=== PATIENT | male | born 1945 | race Hispanic/Latino ===

== ENCOUNTER 2018-01-01 14:12 | Emergency (ER) | payer MEDICARE ==
[~2018-01-01] VITALS: Ht 172.7 cm; Wt 88.5 kg
[~2018-01-01 14:12] MED LIST: ASPIRIN325 MG PO; LISINOPRIL20 MG PO; LOVASTATIN40 MG PO; METFORMIN HCL1000 MG PO
--- OUTSIDE RECORDS SUMMARY | 2018-01-01 14:13 | XMS REPORT ---
Author Author [facility] Address Unknown Phone Unavailable Care Team Providers Care Auto Design Checker Name Role Phone WOO SALAZAR Unavailable Unavailable Problems This patient has no known problems. Allergies, Adverse Reactions, Alerts This patient has no known allergies or adverse reactions. Medications This patient has no known medications. Results Test Description Test Time Test Comments Text Results Atomic Results Result Comments HIP LEFT 2-3 VW (+/- PELVIS) [place] [address] Patient Name: ELSA KIDD MR #: [id number] : 1945 Age/Sex: 71/M Req #: [id number] [facility] Physician: Ordered by: WOO SALAZAR MD Report #: [id number] Location: ER Room/Bed: Procedure: [id number] DX/HIP LEFT 2-3 VW (+/- PELVIS) Exam Date: Exam Time: REPORT STATUS: Signed SHOULDER LEFT COMPLETE , HIP LEFT 2-3 VW (+/- PELVIS) Comparison: None Clinical history: Left shoulder and left thigh pain. Findings: Left shoulder: No acute fracture or dislocation. Minimal acromioclavicular/glenohumeral degenerative changes. Left hip: Mild/moderate bilateral hip and partially imaged lumbosacral degenerative changes. No acute fracture or dislocation. Left inguinal clips. Vascular calcifications. Impression: No acute bony abnormality Signed by: Dr Kristi Madden MD on 09/23/2017 5:43 AM Dictated By: KRISTI MADDEN MD 2 Transcribed By: KERI on 09/23/17542 COPY TO: WOO SALAZAR MD SHOULDER LEFT COMPLETE [place] [address] Patient Name: ELSA KIDD MR #: [id number] : 1945 Age/Sex: 71/M Req #: [id number] Adm Physician: Ordered by: WOO SALAZAR MD Report #: [id number] Location: ER Room/Bed: Procedure: [id number] DX/SHOULDER LEFT COMPLETE Exam Date: 09/23/17 Exam Time: 042 REPORT STATUS: Signed SHOULDER LEFT COMPLETE, HIP LEFT 2-3 VW (+/- PELVIS) Comparison: None Clinical history: Left shoulder and left thigh pain. Findings: Left shoulder: No acute fracture or dislocation. Minimal acromioclavicular/glenohumeral degenerative changes. Left hip: Mild/moderate bilateral hip and partially imaged lumbosacral degenerative changes. No acute fracture or dislocation. Left inguinal clips. Vascular calcifications. Impression: No acute bony abnormality Signed by: Dr Kristi Madden MD on 09/23/2017 5:43 AM Dictated By: KRISTI MADDEN MD 2 Transcribed By: KERI on 09/23/17542 COPY TO: WOO SALAZAR MD
--- NOTE | 2018-01-01 15:35 | Diagnostic Imaging Report ---
PROCEDURE:X-RAY RIGHT ANKLE, COMPLETE INDICATION:Status post fall COMPARISON:None. FINDINGS: Normal mineralization. No acute, displaced fracture or dislocation. Ankle mortise is preserved. No osteochondral lesion. Enthesopathy in the medial malleolus and posterior calcaneus. No significant soft tissue swelling. CONCLUSION: No acute abnormalities. Maciel Cleary M.D. Dictated by: Maciel Cleary M.D. on 01/01/2018 at 15:35 Electronically approved by: Maciel Cleary M.D. on 01/01/2018 at 15:35
--- NOTE | 2018-01-01 16:22 | Diagnostic Imaging Report ---
PROCEDURE:CT OF LT HIP WO CONTRAST COMPARISON:[facility], CT, CT PELVIS WO, 01/01/2018, 14:38. [facility], DX, HIP LEFT 2-3 VW (+/- PELVIS), 09/23/2017, 4:28. INDICATIONS:Status post fall, hip pain FINDINGS: Spiral axial CT images of the left hip were performed from the iliac bone to the mid femur. No intravenous contrast was given. Coronal and sagittal reformatted images in bone and soft tissue windows were performed. No displaced fracture or dislocation. Subtle area of indistinct cortex, and linear lucency in the region of the greater trochanter (series 11, image 39), which is only seen in the axial views. No lytic or blastic lesion. Mild degenerative changes in the left hip joint. Calcified injection granulomas in the soft tissues of the gluteal region. Small fat containing inguinal hernia. Visualized portions of the bladder and prostate are unremarkable. CONCLUSION: 1. No displaced fracture or dislocation. 2. Subtle area of indistinct cortex and linear lucency in the region of the greater trochanter. Given the history of trauma, and continued hip pain, MRI of the hip is recommended to exclude an insufficiency nondisplaced fracture. Maciel Cleary M.D. Dictated by: Maciel Cleary M.D. on 01/01/2018 at 16:02 Electronically approved by: Maciel Cleary M.D. on 01/01/2018 at 16:22
--- NOTE | 2018-01-01 16:23 | Diagnostic Imaging Report ---
PROCEDURE:CT PELVIS WITHOUT CONTRAST COMPARISON:None. INDICATIONS:LF HIP PAIN FALL TECHNIQUE:Spiral axial CT images of the pelvis were performed. No intravenous contrast was given. Coronal and sagittal reformatted images were performed. FINDINGS: PELVIC ORGANS: Bladder and prostate are unremarkable. Multiple pelvic phleboliths. GI TRACT: Visualized bowel shows no dilation or obstruction. Appendix is well identified and normal in caliber. Scattered diverticula in the descending is proximal sigmoid colon, without diverticulitis. PERITONEUM: No free air or free fluid. VESSELS: Atherosclerotic calcification of the distal abdominal aorta and iliac vessels. BONES: No displaced fracture or dislocation. No lytic or blastic lesion. Mild degenerative changes in the hip and sacroiliac joints. Degenerative disc changes in the lower lumbosacral spine SOFT TISSUES: Small bilateral fat-containing inguinal hernias. Calcified injection granuloma in the soft tissues of the left gluteal region CONCLUSION: 1. No displaced fracture or dislocation. No organ injury in the pelvis. 2. Please see CT left hip performed same date for further detail on left hip. Maciel Cleary M.D. Dictated by: Maciel Cleary M.D. on 01/01/2018 at 16:08 Electronically approved by: Maciel Cleary M.D. on 01/01/2018 at 16:23
--- NOTE | 2018-01-01 16:35 | Diagnostic Imaging Report ---
Exam: Lumbar spine CT without IV contrast History: Trauma, fall, low back pain, left hip pain x1 month Comparison studies: None Technique: Axial images were obtained through the lumbar spine. Coronal and sagittal images reconstructed from the axial data. Intravenous contrast: None Findings: Number of non-rib bearing vertebral bodies: 5 Alignment: Straightening lumbar curvature. Minimal grade 1 retrolisthesis of L3 on L4, L4-L5 and L5-S1. Soft tissues: No gross acute abnormalities Paraspinal muscles: Unremarkable. Sacroiliac joints: Moderate degenerative changes with periarticular sclerosis, predominantly along the ileal articulation. Vertebrae: No fractures, infection or neoplasm. Degenerative changes:Low back pain L1-L2: Mildly degenerated disc. Patent canal and foramina. L2-L3: Mildly degenerated disc. Disc osteophyte complex results in mild canal and bilateral foraminal stenosis. L3-L4: Mild loss of disc height with vacuum phenomenon. Minimal retrolisthesis of L3 on L4 with associated disc osteophyte complex, thickened ligamentum flavum and facet arthrosis with severe canal stenosis and moderate bilateral foraminal stenosis. L4-L5: Mild loss of disc height with vacuum phenomenon. Minimal retrolisthesis of L4 and L5 with associated disc osteophyte complex, thickened ligamentum flavum and facet arthrosis with severe canal stenosis and moderately severe bilateral foraminal stenosis. L5-S1: Moderate loss of disc height with vacuum phenomenon. Minimal retrolisthesis of L5 on S1 with associated disc osteophyte complex, thickened ligamentum flavum and facet arthrosis with mild canal stenosis, severe bilateral foraminal stenosis and subarticular stenosis with potential compression of the bilateral S1 nerve roots. Incidental findings: * Calcified atherosclerosis throughout the abdominal aorta, at the origins of the superior mesenteric artery, bilateral renal arteries and in the left common iliac artery. There is eccentric displacement of calcified plaque within the infrarenal abdominal aorta without aneurysmal dilatation which may reflect ulcerated after cirrhotic plaque or possibly related to dissection. * Cholelithiasis with gallstones measure up to 10 mm. IMPRESSION: 1. No lumbar spine fracture or subluxation. 2. Multilevel degenerative changes as described with severe canal stenosis at L3-L4 and at L4-L5, varying degrees of moderate to severe foraminal stenosis from L3 to S1 and potential compression of the bilateral S1 subarticular nerve roots. 3. Incidental findings as described. Signed by: Dr. Roly Mcdonald M.D. on 01/01/2018 4:32 PM
[2018-01-01] MEDS ORDERED: MORPHINE SULFATE 2 MG/ML SYR IV STA (17:11)
[2018-01-01] MEDS ORDERED: MORPHINE SULFATE 2 MG/ML SYR IM STA (17:12)
--- NOTE | 2018-01-01 18:44 | Diagnostic Imaging Report ---
MRI hip, preliminary report: Clinical history: Status post fall, left hip pain Comparison: CT hip 01/01/2018 Impression: 1. No MR evidence of hip fracture. Bony structures are intact.
[2018-01-01 19:15] VITALS: BP 159/88
[2018-01-01] MEDS ORDERED: IOPAMIDOL 370 MG/ML 200 ML INFUS..BTL INJ ONE (20:04)
[2018-01-01] MEDS ORDERED: SODIUM CHLORIDE 0.9% 50ML 50 ML ONE (20:04)
== END 2018-01-01 19:30 | disposition home or self-care (01) ==
LOC: ER 14:12
DX: S93.431A Sprain of tibiofibular ligament of right ankle, initial encounter (principal); M54.42 Lumbago with sciatica, left side; M25.552 Pain in left hip; W01.0XXA Fall on same level from slipping, tripping and stumbling without subsequent striking against object, initial encounter; Z95.1 Presence of aortocoronary bypass graft
CPT/HCPCS: 72131; 72192; 73610; 73700; 73721; 99283; J2270; Q9967

== ENCOUNTER → 2018-02-17 | Outpatient (CLI) | payer MEDICARE ==
--- NOTE | 2018-02-19 13:35 | Diagnostic Imaging Report ---
History: Right leg pain Comparison studies: CT lumbar spine 01/01/2018 Technique: Sagittal, coronal and axial T2 , sagittal T1 and IR, axial spin density oblique. Intravenous contrast: None Findings: Number of lumbar vertebral bodies:5 Alignment: Straightening of the normal lordosis.Mild dextroscoliosis centered at L4-L5. Soft tissues: No T2 hyperintense inflammatory changes. Paraspinal muscles: No signal abnormalities. No atrophy. Lower thoracic cord:Normal in signal and morphology. The tip of the conus is at L1 inferior endplate. Cauda equina: No masses. No arachnoiditis. Vertebrae: Normal in height and signal intensity. No compression fractures, infection or neoplasm. Degenerative changes: L1-L2: No abnormalities. L2-L3: Disc degeneration with decreased T2 signal and intervertebral space. Diffuse disc bulge, mild facet hypertrophy and ligamentum flavum thickening results in obliteration and right subarticular recesses, moderate canal stenosis and mild bilateral foraminal narrowing. L3-L4: Disc degeneration with loss of T2 signal. Diffuse disc bulge with superimposed inferiorly migrated disc extrusion, moderate facet hypertrophy results in moderate to severe canal stenosis and moderate bilateral foraminal narrowing. L4-L5: Disc degeneration with loss of T2 signal and Modic type I changes towards the left. Diffuse disc bulge moderate facet hypertrophy and ligamentum flavum thickening results in severe canal stenosis, moderate right and severe left foraminal narrowing. L5-S1: Disc degeneration with decreased intervertebral space. Diffuse disc bulge with superimposed central inferiorly migrated disc protrusion results in mild canal stenosis, obliteration of the bilateral subarticular recesses and severe bilateral foraminal narrowing more prominent on the right. Additional findings: None IMPRESSION: Severe degenerative canal stenosis, moderate right and severe left foraminal narrowing at L4-L5. Moderate degenerative severe canal stenosis and moderate bilateral foraminal narrowing at L3-L4. Severe bilateral degenerative foraminal narrowing at L5-S1. Moderate degenerative canal stenosis and obliteration of the right subarticular recesses at L2-L3. Other degenerative changes as described above. Signed by: DR Emerson Baxter M.D. on 02/19/2018 1:31 PM
== END ==
LOC: MRI 15:44
PROVIDERS: ATTEND Specialist
DX: M54.31 Sciatica, right side (principal)
CPT/HCPCS: 72148

== ENCOUNTER 2019-01-04 12:00 | Emergency (ER) | payer MEDICARE ==
[~2019-01-04] VITALS: Ht 172.7 cm; Wt 88.5 kg
--- OUTSIDE RECORDS SUMMARY | 2019-01-04 12:02 | XMS REPORT | Clinical Summary ---
Author Author [facility] Organization [facility] Address Unknown Phone Unavailable Care Team Providers Care Back Hoe Operator Name Role Phone Julio Cesar Tyler PCP Allergies No Known Allergies Medications End Date Status Medication Sig Dispensed Refills Start Date Active lisinopril Take 20 mg by 0 (PRINIVIL,ZESTRIL) 20 MG mouth daily. tablet Active lovastatin (MEVACOR) 40 Take 40 mg by 0 MG tablet mouth nightly. Active metFORMIN (GLUCOPHAGE) Take 500 mg 0 500 MG tablet by mouth 2 (two) times daily with breakfast and dinner. 01/27/2018 acetaminophen-codeine Take 1 tablet 20 tablet 0 (TYLENOL #3) 300-30 mg by mouth 8 per tablet every 4 (four) hours as needed for up to 10 days. Max Daily Amount: 6 tablets Active Problems Problem Noted Date NSTEMI (non-ST elevated myocardial infarction) 03/06/2015 Overview: Presenting 03/06/2015 Chest pain 03/06/2015 HTN (hypertension) 03/06/2015 CAD (coronary artery disease) 03/06/2015 Overview: 03/07/2015 Cardiac Cath revealing triple vessel disease; 03/08/2015 CABG x 3 (GO-LAD, SVG-D2, SVG-OM) by Dr. Dela Cruz Atypical chest pain 04/14/2014 Chronic low back pain 04/14/2014 Sciatica 04/14/2014 Uncontrolled diabetes mellitus 04/14/2014 Hyperlipidemia 04/14/2014 Encounters Care Team Description Date Type Specialty Edgard Xavier MD Pain of right hip joint (Primary Dx); Midline low back pain with sciatica, sciatica laterality unspecified, unspecified chronicity; Fall, initial encounter 01/17/2018 Emergency Emergency Medicine after 01/03/2018 Immunizations Name Dates Previously Given Next Due Pneumococcal 04/16/2014 Polysaccharide (Pneumovax) Family History Medical History Relation Name Comments Diabetes Father Hyperlipidemia Father Hypertension Father Stroke Father Vision loss Father Asthma Mother Depression Mother Relation Name Status Comments Father Mother Social History Date Tobacco Use Types Packs/Day Years Used Never Smoker Alcohol Use Drinks/Week oz/Week Comments No Sex Assigned at Date Recorded Not on file Industry Job Start Date Occupation Not on file Not on file Not on file Travel End Travel History Travel Start No recent travel history available. Last Filed Vital Signs Time Taken Vital Sign Reading 01/17/2018 1:13 PM CDT Blood Pressure 160/78 01/17/2018 1:13 PM CDT Pulse 65 01/17/2018 1:13 PM CDT Temperature 36.4 C (97.6 F) 01/17/2018 1:13 PM CDT Respiratory Rate 16 01/17/2018 9:17 AM CDT Oxygen Saturation 100% - Inhaled Oxygen - Concentration 01/17/2018 9:17 AM CDT Weight 85.3 kg (188 lb) 01/17/2018 9:17 AM CDT Height 172.7 cm (5' 8") 01/17/2018 9:17 AM CDT Body Mass Index 28.59 Plan of Treatment Health Maintenance Due Date Last Done Comments INFLUENZA VACCINE 07/13/2018 Implants Device Identifier Shelf Expiration Date Model / Serial / Lot Implanted Type Area Manufactur er 11/26/2017 [id number] / / [id number] [employer] Implanted: Qty: 1 on 03/07/2015 Procedures Comments Procedure Name Priority Date/Time Associated Diagnosis XR FOOT RIGHT 3 VIEW STAT 01/17/2018 12:[address] PELVIS WITHOUT IV STAT 01/17/2018 CONTRAST 12:[address] SPINE LUMBAR WITHOUT STAT 01/17/2018 IV CONTRAST 12:15 PM CDT after 01/03/2018 Results * XR foot 3 views right (01/17/2018 12:21 PM CDT) Narrative Performed At FINAL REPORT [facility] Right foot. Clinical history: Trauma. COMPARISON STUDY: None available. FINDINGS: Three views of the right foot demonstrate no evidence of fracture, malalignment or effusion. Minimal enthesopathic changes are seen at the insertion of the Achilles tendon. Signed: Shaheen Leyva MD Report Verified Date/Time:01/17/2018 12:27:48 Reading Location: [facility] C013Y CT Body Reading Room Procedure Note Interface, External Ris In - 01/17/2018 12:29 PM CDT FINAL REPORT Right foot. Clinical history: Trauma. COMPARISON STUDY: None available. FINDINGS: Three views of the right foot demonstrate no evidence of fracture, malalignment or effusion. Minimal enthesopathic changes are seen at the insertion of the Achilles tendon. Signed: Shaheen Leyva MD Report Verified Date/Time: 01/17/2018 12:27:48 Reading Location: [facility] C013Y CT Body Reading Room Performing Organization Address City/State/Zipcode Phone Number [facility] * CT pelvis without IV contrast (01/17/2018 12:15 PM CDT) Narrative Performed At FINAL REPORT [facility] CT pelvis without intravenous contrast. INDICATION: trauma fall, right hip pain COMPARISON: 04/14/2014 TECHNIQUE: Multiple contiguous transaxial images of the pelvis were obtained without intravenous contrast.Coronal and sagittal reformatted images were also obtained. This exam was performed according to our departmental dose optimization program which includes automated exposure control, adjustment of the mA and/or kV according to patient size and/or use of iterative reconstructive technique. FINDINGS: Please refer to the lumbar spine CT examination from the same date for additional findings. There is no fracture or traumatic malalignment visualized in the pelvis or bilateral hips. The alignment appears normal. Mild degenerative changes are seen. The The tendons and muscles are intact. There is no fluid collection or hematoma. Fat-containing bilateral inguinal hernias are noted, left worse than right. The urinary bladder is unremarkable. There is no pelvic lymphadenopathy. There are vascular calcifications. IMPRESSION: 1. No acute fracture or subluxation visualized in the pelvis. 2. Mild degenerative changes as above. Signed: Dimas Nichols MD Report Verified Date/Time:01/17/2018 12:29:31 Reading Location: [facility] Ortho Consult Reading Room Procedure Note Interface, External Ris In - 01/17/2018 12:39 PM CDT FINAL REPORT CT pelvis without intravenous contrast. INDICATION: trauma fall, right hip pain COMPARISON: 04/14/2014 TECHNIQUE: Multiple contiguous transaxial images of the pelvis were obtained without intravenous contrast. Coronal and sagittal reformatted images were also obtained. This exam was performed according to our departmental dose optimization program which includes automated exposure control, adjustment of the mA and/or kV according to patient size and/or use of iterative reconstructive technique. FINDINGS: Please refer to the lumbar spine CT examination from the same date for additional findings. There is no fracture or traumatic malalignment visualized in the pelvis or bilateral hips. The alignment appears normal. Mild degenerative changes are seen. The The tendons and muscles are intact. There is no fluid collection or hematoma. Fat-containing bilateral inguinal hernias are noted, left worse than right. The urinary bladder is unremarkable. There is no pelvic lymphadenopathy. There are vascular calcifications. IMPRESSION: 1. No acute fracture or subluxation visualized in the pelvis. 2. Mild degenerative changes as above. Signed: Dimas Nichols MD Report Verified Date/Time: 01/17/2018 12:29:31 Reading Location: [facility] C013 Ortho Consult Reading Room Performing Organization Address City/State/Zipcode Phone Number [facility] * CT spine lumbar without IV contrast (01/17/2018 12:15 PM CDT) Narrative Performed At FINAL REPORT [facility] CT Lumbar spine CLINICAL HISTORY: trauma fall TECHNIQUE: Contiguous noncontrast axial images of the lumbar spine with coronal and sagittal reformations to assess the alignment. This exam was performed according to the departmental dose optimization program which includes automated exposure control, adjustment of the mA and/or kV according to the patient size, and/or use of an iterative reconstruction technique. COMPARISON: None FINDINGS: There is no evidence of lumbar fracture. There is grade 1 retrolisthesis of L3-4, L4-L5, and L5-S1. Allowing for the lack of intrathecal contrast, broad-based disc osteophyte complexes and facet arthrosis result in severe appearing central canal stenosis at L3-L4 and L4-L5, with at least moderate appearing central canal stenosis at L2-L3 and L5-S1. There are multiple calcified gallstones. There are vascular calcifications in the abdominal aorta. IMPRESSION: No lumbar fracture or dislocation. Signed: Johnna Seth MD Report Verified Date/Time:01/17/2018 12:34:49 Reading Location: [address] Neuro Reading Room Procedure Note Interface, External Ris In - 01/17/2018 12:39 PM CD[address] FINAL REPORT CT Lumbar spine CLINICAL HISTORY: trauma fall TECHNIQUE: Contiguous noncontrast axial images of the lumbar spine with coronal and sagittal reformations to assess the alignment. This exam was performed according to the departmental dose optimization program which includes automated exposure control, adjustment of the mA and/or kV according to the patient size, and/or use of an iterative reconstruction technique. COMPARISON: None FINDINGS: There is no evidence of lumbar fracture. There is grade 1 retrolisthesis of L3-4, L4-L5, and L5-S1. Allowing for the lack of intrathecal contrast, broad-based disc osteophyte complexes and facet arthrosis result in severe appearing central canal stenosis at L3-L4 and L4-L5, with at least moderate appearing central canal stenosis at L2-L3 and L5-S1. There are multiple calcified gallstones. There are vascular calcifications in the abdominal aorta. IMPRESSION: No lumbar fracture or dislocation. Signed: Johnna Seth MD Report Verified Date/Time: 01/17/2018 12:34:49 Reading Location: [address] Neuro Reading Room Performing Organization Address City/State/Zipcode Phone Number [facility] after 01/03/2018 Insurance Payer Benefit Subscriber ID Type Phone Address Plan / Group MEDICARE MEDICARE A xxxxxxxxxx Medicare B Advance Directives For more information, please contact: [address] [address] Date Inactivated Comments Code Status Date Activated 03/14/2015 8:20 PM Full Code 03/06/2015 4:24 PM This code status was determined by: Patient 04/17/2014 9:02 PM Full Code 04/14/2014 3:39 AM This code status was determined by: Patient
--- NOTE | 2019-01-04 16:05 | NUR ---
commercial instructor supervisor Adalberto called stating pt was being beligerent up front to the staff in the main lobby. I went to see the patient, escorted the patient back to the ED to give him his discharge instructions. Per melissa supervior the pt was yelling at the front edger lady upset because of the long wait in the ED. Prior to that episode. Pt was already seen treated by the ER MD and RN but was still waiting on discharge instructions. Pt was temporarily roomed in ER 1 and was asked to step out d/t a critical patient that needed to be on the monitor and the patient only waiting on D/C paperwork. Pt became upset and beligerent with staff. Addendum: 01/04/19 at 1833 by MATIAS Informed patient of ED holding status and the hospital at capacity. Pt then calmed down and verbalized understanding. D/C given and pt educated and home instruction/follow up care given Pt verbalized understanding.
== END 2019-01-04 16:06 | disposition home or self-care (01) ==
LOC: ER 12:00
DX: K12.2 Cellulitis and abscess of mouth (principal); K04.6 Periapical abscess with sinus; J20.9 Acute bronchitis, unspecified; I10 Essential (primary) hypertension; E11.9 Type 2 diabetes mellitus without complications; I25.10 Atherosclerotic heart disease of native coronary artery without angina pectoris; Z95.1 Presence of aortocoronary bypass graft
CPT/HCPCS: 99283

== ENCOUNTER 2019-12-11 10:09 | Emergency (ER) | payer MEDICARE ==
[~2019-12-11] VITALS: Ht 172.7 cm; Wt 88.5 kg
[2019-12-11 11:34] LABS: INFLUENZAE A&B ANTIGEN (RAPID) NEGATIVE (NEGATIVE); STREPTOCOCCUS GRP A ANTIGEN NEGATIVE (NEGATIVE)
--- NOTE | 2019-12-11 11:36 | Diagnostic Imaging Report ---
EXAMINATION: CHEST 2 VIEWS INDICATION: Flulike symptoms ^fls ^[id number] ^[id number] COMPARISON: None FINDINGS: PA and lateral views TUBES and LINES: None. LUNGS: Lungs are well inflated. There is no evidence of pneumonia or pulmonary edema. PLEURA: No pleural effusion or pneumothorax. HEART AND MEDIASTINUM: Postoperative changes from cardiac bypass. The heart is normal in size. Vascular markings are normal. BONES AND SOFT TISSUES: Median sternotomy wires are intact. No focal osseous lesions. Soft tissues are unremarkable. UPPER ABDOMEN: Unremarkable. IMPRESSION: No acute thoracic abnormality. Signed by: Dr. Michel Jung MD on 12/11/2019 11:34 AM
== END 2019-12-11 12:39 | disposition home or self-care (01) ==
LOC: ER 10:09
DX: R50.9 Fever, unspecified (principal); R05 Cough; B34.9 Viral infection, unspecified
CPT/HCPCS: 71046; 83518; 87070; 87400; 99283